=== PATIENT | male | born 1995 | race Caucasian/White ===

== ENCOUNTER → 2017-05-24 | Day surgery (SDC) | payer OTHER ==
[~2017-05-24] VITALS: Ht 175.3 cm; Wt 80.4 kg
[~2017-05-24] MED LIST: ACETAMINOPHEN 1000 MG/100 ML 100 ML IV ONE; ACETAMINOPHEN 1000 MG/100 ML 100 ML IV SCH; BUPIVACAINE LIPOSOME PF 1.3% 20 ML VIAL ONE; BUPIVACAINE/EPINEPHRINE 0.5% 50 ML VIAL ONE; BUSP5TAB PO; CHLORHEXIDINE GLUCONATE 2 % 1 PACK (2 CLOTHS) TOPICAL PRN; CYMB60CA PO; INSULIN HUMAN REGULAR 1,000 UNITS/10 ML VIAL SQ PRN; KETOROLAC TROMETHAMINE 30 MG/ML (IVP) VIAL IV PUSH ONE; KETOROLAC TROMETHAMINE 30 MG/ML (IVP) VIAL ONE; LACTATED RINGER'S 1000 ML IV PRN; LIDOCAINE 1%/EPINEPHrine 1:100,000 SOLN 50 ML VIAL ONE; METOPROLOL TARTRATE 25 MG TAB PO PRN; METOPROLOL TARTRATE 5 MG/5 ML VIAL IV PUSH ONE; MIDAZOLAM HCL 2 MG/2 ML VIAL IV ONE; MORPHINE SULFATE 4 MG/ML INJ IV PUSH PRN; ONDANSETRON HCL 4 MG/2 ML VIAL IV PUSH ONE; ONDANSETRON HCL 4 MG/2 ML VIAL IV PUSH PRN; POVIDONE IODINE 5% (ANTISEPSIS KIT) 4 APPLICATIONS EACH NARE PRN; PROPOFOL 200 MG/20 ML AMP IV ONE; PROPOFOL 500 MG/50 ML INJ 50 ML ONE; SODIUM BICARBONATE 8.4% INJ 0 ML ONE; SODIUM CHLORID 0.9% 500 ML IV PRN; SODIUM CHLORIDE 0.9% FLUSH 10 ML FLUSH IV FLUSH PRN; SODIUM CHLORIDE 0.9% FLUSH 10 ML FLUSH IV FLUSH SCH; STERILE WATER FOR INJECTION 20 ML VIAL IV ONE; VANCOMYCIN 500 MG/NS 100 ML IV ONE; ceFAZolin INJ 1,000 MG VIAL ONE; oxyCODONE/ACETAMINOPHEN 5 MG/325 MG TAB PO PRN
--- NOTE | 2017-05-24 13:26 | MP ---
cc: AARON NOEL DATE OF SURGERY 05/24/2017 PREOPERATIVE DIAGNOSIS Lymphadenopathy. POSTOPERATIVE DIAGNOSIS Lymphadenopathy. PROCEDURE Excisional biopsy of left axillary lymph node. SURGEON MD Yovani VITAMIN MANAGER Ousmane Spivey, MS III ANESTHESIA Local with MAC. OPERATIVE FINDINGS AND PROCEDURE The patient was brought to the operating room and after satisfactory sedation by Anesthesia the left axilla was prepped and draped in the usual sterile fashion. 1.3% Exparel was used to infiltrate the skin for local anesthesia. A transverse infra-axillary incision was made and carried down sharply to the subcutaneous tissue with the cautery being used for hemostasis. The incision was deepened into the axilla proper by incising the clavipectoral fascia with the cautery. The axillary lymph node in question was identified by palpation, then grasped with an Allis clamp. It was dissected free with the harmonic scalpel and passed for permanent pathology. The area was made hemostatic after which the deep tissues were closed with interrupted 3-0 Vicryl sutures. The subcutaneous tissue was closed with interrupted 3-0 Vicryl suture and the skin closed with interrupted 4-0 PDS subcuticular stitches. The remainder of the Exparel was infiltrated in surrounding tissue for a total of 20 mL. After closing the skin with interrupted 4-0 PDS subcuticular stitches and placing Steri-Strips, the patient was awakened and taken from the operating room in satisfactory condition having tolerated the procedure without problem. Estimated blood loss was less than 5 mL. The instrument count, sponge count and needle counts were reported as being correct x2 at the end of procedure. MD BUNNY BrownB/AMPARO /1:14 PM /1:19 PM
[2017-05-24 14:50] VITALS: BP 106/65; PULSE 66; RESP 16; TEMP 97.8; O2SAT 99
== END | disposition home or self-care (01) ==
LOC: HSDC 10:06
PROVIDERS: ATTEND Surgery
DX: R59.0 Localized enlarged lymph nodes (principal)
CPT/HCPCS: 01610; 38525; 88305; C9290; J0131; J1885; J2250; J2405; J3010; J7120; J0690